=== PATIENT | female | born 1955 | race Caucasian/White ===

== ENCOUNTER 2022-01-23 10:10 | Emergency (ER) | payer BC ==
[~2022-01-23] VITALS: Ht 165.1 cm; Wt 59.0 kg
== END 2022-01-23 13:34 | disposition home or self-care (01) ==
LOC: ED 10:10
DX: S01.01XA Laceration without foreign body of scalp, initial encounter (principal); W22.8XXA Striking against or struck by other objects, initial encounter; Y93.89 Activity, other specified; Y92.59 Other trade areas as the place of occurrence of the external cause; Y99.8 Other external cause status